=== PATIENT | male | born 1975 | race Caucasian/White ===

== ENCOUNTER 2017-04-17 13:43 | Emergency (ER) | payer OTHER, MEDICAID ==
[2017-04-17] MEDS: morphine 10 MG INJ IM (15:44)
[2017-04-17] MEDS: KETOROLAC 60 MG INJ IM (16:46)
== END 2017-04-17 17:29 | disposition home or self-care (01) ==
LOC: FTE 17:29
DX: R10.13 Epigastric pain (principal); G89.29 Other chronic pain; S61.012A Laceration without foreign body of left thumb without damage to nail, initial encounter; W26.0XXA Contact with knife, initial encounter; Y92.9 Unspecified place or not applicable
CPT/HCPCS: 74019; 76705; 96372; 99285-25

== ENCOUNTER 2017-04-18 03:32 | Emergency (ER) | payer SELFPAY, OTHER | END 2017-04-18 12:58 | disposition left against medical advice (07) | LOC: E/R 03:32 | DX: Z53.21 Procedure and treatment not carried out due to patient leaving prior to being seen by health care provider (principal) ==